=== PATIENT | female | born 1995 | race American Indian/Alaskan Native ===

== ENCOUNTER 2018-10-13 19:36 | Emergency (ER) | payer MEDICAID ==
[2018-10-13 20:21] VITALS: BP 138/88
--- NOTE | 2018-10-13 20:22 | Event Note ---
ED Screening Note ED Screening Note: pt presents with a cough for a week mucus production no rhinorrhea no congestion no sore throat PMHx asthma PSHx cholecystectomy +former smoker, quit a week ago This initial assessment/diagnostic orders/clinical plan/treatment(s) is/are subject to change based on patients health status, clinical progression and re- assessment by fellow clinical providers in the ED. Further treatment and workup at subsequent clinical providers discretion. Patient/guardian urged not to elope from the ED as their condition may be serious if not clinically assessed and managed. Initial orders include: CXR, UA, urine preg, neb tx, steroids
[2018-10-13] MEDS ORDERED: PROVENTIL IH ONE (20:23)
[2018-10-13] MEDS ORDERED: DECADRON IV ONE (20:23)
[2018-10-13] MEDS ORDERED: ATROVENT IH ONE (20:23)
[2018-10-13 21:11] LABS: Bilirubin,Urine NEG (Negative); Blood,Urine NEG (Negative); Color,Urine Yellow (Yellow); Mucus,Urine FEW /HPF; Protein,Urine <15 mg/dL mg/dL (Negative)
[2018-10-13 21:12] LABS: HCG Qualitative,Urine Negative (Negative)
[2018-10-13] MEDS ORDERED: DECADRON PO ONE (22:13)
--- NOTE | 2018-10-13 22:20 | Emergency Department Report ---
- General Chief Complaint: Upper Respiratory Infection Stated Complaint: SOB/COUGHING/WHEEZING Time Seen by Provider: 10/13/18 20:18 Source: patient Mode of arrival: Ambulatory Limitations: No Limitations - History of Present Illness Initial Comments: 22-year-old -[place] female presents stating would cough, congestion, wheezing, low-grade fever. Rest 3 days worse today. No chest pain or shortness of breath MD Complaint: fever, cough, nasal congestion Onset/Timin -: days(s) Severity scale (0 -10): 4 Associated Symptoms: denies other symptoms, fever Treatments Prior to Arrival: none - Related Data Previous Rx's Medication Instructions Recorded Last Taken Type Albuterol Sulfate [Proventil Hfa] 1 inch IH Q8HR PRN #1 hfa.aer.ad 10/13/18 Unknown Rx Amoxicillin [Amoxicillin TAB] 875 mg PO BID #20 tablet 10/13/18 Unknown Rx Prednisone [predniSONE 5 mg (6-Day 5 mg PO .TAPER #1 tab.ds.pk 10/13/18 Unknown Rx Pack, 21 Tabs)] Allergies Allergy/AdvReac Type Severity Reaction Status Date / Time No Known Allergies Allergy Verified 10/13/18 19:42 ED Review of Systems ROS: Stated complaint: SOB/COUGHING/WHEEZING Other details as noted in HPI ENT: denies: ear pain Respiratory: cough, wheezing Cardiovascular: chest pain Gastrointestinal: denies: nausea Genitourinary: denies: urgency Skin: denies: rash Neurological: headache ED Past Medical Hx - Past Medical History Hx Headaches / Migraines: Yes Hx Asthma: Yes - Surgical History Hx Cholecystectomy: Yes Additional Surgical History: RT ARM - Social History Smoking Status: Current Every Day Smoker Substance Use Type: None - Medications Home Medications: Home Medications Medication Instructions Recorded Confirmed Last Taken Type Albuterol Sulfate [Proventil Hfa] 1 inch IH Q8HR PRN #1 hfa.aer.ad 10/13/18 Unknown Rx Amoxicillin [Amoxicillin TAB] 875 mg PO BID #20 tablet 10/13/18 Unknown Rx Prednisone [predniSONE 5 mg (6-Day 5 mg PO .TAPER #1 tab.ds.pk 10/13/18 Unknown Rx Pack, 21 Tabs)] ED Physical Exam - General Limitations: No Limitations General appearance: alert, in no apparent distress - Head Head exam: Present: atraumatic, normocephalic - Eye Eye exam: Present: normal appearance Pupils: Present: normal accommodation - ENT ENT exam: Present: normal exam, normal orophraynx - Neck Neck exam: Present: normal inspection - Respiratory Respiratory exam: Present: wheezes - Cardiovascular Cardiovascular Exam: Present: regular rate, normal rhythm - GI/Abdominal GI/Abdominal exam: Present: soft, normal bowel sounds - Back Exam Back exam: Present: normal inspection - Neurological Exam Neurological exam: Present: alert, oriented X3 - Psychiatric Psychiatric exam: Present: normal affect, normal mood - Skin Skin exam: Present: warm ED Course Vital Signs 10/13/18 10/13/18 20:19 22:56 Temperature 98 F Pulse Rate 69 Pulse Rate [ 65 Bilateral Throughout] Respiratory 18 Rate Respiratory 16 Rate [Bilateral Throughout] Blood Pressure 138/88 O2 Sat by Pulse 97 Oximetry Critical care attestation.: If time is entered above; I have spent that time in minutes in the direct care of this critically ill patient, excluding procedure time. ED Disposition Clinical Impression: Acute bronchitis Qualifiers: Bronchitis organism: unspecified organism Qualified Code(s): J20.9 - Acute bronchitis, unspecified Disposition: DC-01 TO HOME OR SELFCARE Is pt being admited?: No Does the pt Need Aspirin: No Condition: Stable Instructions: Acute Bronchitis (ED) Prescriptions: Amoxicillin [Amoxicillin TAB] 875 mg PO BID #20 tablet Prednisone [predniSONE 5 mg (6-Day Pack, 21 Tabs)] 5 mg PO .TAPER #1 tab.ds.pk Albuterol Sulfate [Proventil Hfa] 1 inch IH Q8HR PRN #1 hfa.aer.ad PRN Reason: Wheezing Referrals: RAYA SOODDUNBAR MD MARCO ANTONIO [Primary Care Provider] - 3-5 Days
--- NOTE | 2018-10-13 22:43 | XRay Report ---
CHEST PA AND LATERAL VIEWS INDICATION: cough, asthma. COMPARISON: None. FINDINGS: Support devices: None. Heart: Within normal limits. Lungs/Pleura: No acute pulmonary or pleural findings. IMPRESSION: 1. No significant abnormality. Signer Name: Obinna Duggan MD Signed: 10/13/2018 10:38 PM Workstation Name: [id number]
== END 2018-10-13 23:10 | disposition home or self-care (01) ==
LOC: ED 19:36
DX: J20.9 Acute bronchitis, unspecified (principal); G43.909 Migraine, unspecified, not intractable, without status migrainosus; J45.909 Unspecified asthma, uncomplicated; F17.200 Nicotine dependence, unspecified, uncomplicated; Z90.49 Acquired absence of other specified parts of digestive tract; Z79.899 Other long term (current) drug therapy
CPT/HCPCS: 71046; 81001; 81025; 94640; 94644; 99284